=== PATIENT | male | born 1990 | race Caucasian/White ===

== ENCOUNTER 2024-09-02 15:31 | Outpatient (CLI) | payer BC | END 2024-09-02 15:32 | disposition home or self-care (01) | LOC: BICRAD 15:31 | PROVIDERS: ATTEND Internal Medicine Rheumatology | DX: M46.1 Sacroiliitis, not elsewhere classified (principal); M89.9 Disorder of bone, unspecified | CPT/HCPCS: 72190; 72202 ==